=== PATIENT | female | born 1955 | race Asian ===

== ENCOUNTER → 2023-12-06 14:10 | Outpatient (REF) | payer MEDICARE, SELFPAY | LOC: HWRAD 14:10 | PROVIDERS: ATTENDING PHYSICIAN Internal Medicine Hematology & Oncology; FAMILY PHYSICIAN Family Medicine | DX: C50.911 Malignant neoplasm of unspecified site of right female breast (principal); D50.9 Iron deficiency anemia, unspecified; C50.912 Malignant neoplasm of unspecified site of left female breast | CPT/HCPCS: 71260; Q9967 ==

== ENCOUNTER 2023-12-12 15:16 | Emergency (ER) | payer MEDICARE, SELFPAY ==
[2023-12-12 15:16] VITALS: BMI 35.6
[2023-12-12 15:22] VITALS: BP 146/93
[2023-12-12 15:37] LABS: Glucose - Point of Care 107 mg/dl (70-99)
[2023-12-12 16:00] LABS: % Basophils 0.7 % (0-2); % Eosinophils 4.4 % (0-6); % Immature Granulocytes 0.3 % (0-0.5); % Lymphocytes 20.1 % (20.5-51.1); % Monocytes 8.3 % (1.7-9.3); % Neutrophils 66.2 % (42.2-75.2); Absolute Basophils 0.1 10^3/uL (0-0.2); Absolute Eosinophils 0.5 10^3/uL (0-0.7); Absolute Lymphocytes 2.2 10^3/uL (1.2-3.4); Absolute Monocytes 0.9 10^3/uL (0.1-0.6); Absolute Neutrophils 7.2 10^3/uL (1.4-6.5); Hematocrit 37.6 % (37.0-47.0); Hemoglobin 12.4 g/dL (12.0-16.0); Mean Corpuscular Volume 81.7 fL (81.0-99.0); Mean Platelet Volume 9.9 fL (7.4-10.4); Nucleated Red Blood Cells % 0 %; Platelet Count 333 10^3/uL (130-400); Red Cell Dist. Width 13.5 % (11.5-14.5); White Blood Cell Count 10.8 10^3/uL (4.8-10.8)
[2023-12-12 16:15] LABS: ALT (SGPT) 14 U/L (0-35); AST (SGOT) 23 U/L (14-36); Albumin 3.8 g/dl (3.5-5.0); Alkaline Phosphatase 91 U/L (38-126); Blood Urea Nitrogen 21 mg/dl (7-17); Calcium 9.7 mg/dl (8.4-10.2); Carbon Dioxide 27 mmol/L (22-30); Chloride 98 mmol/L (98-107); Glucose 105 mg/dl (70-99); Potassium 4.4 mmol/L (3.5-5.1); Sodium 136 mmol/L (135-145); Total Bilirubin 0.7 mg/dl (0.2-1.3); Total Protein 7.6 g/dl (6.3-8.2); eGFR > 60.00
[2023-12-12 16:20] LABS: COVID-19 Antigen Negative (Negative)
[2023-12-12 16:23] LABS: NT-proBNP 357 pg/ml; Troponin I < 0.012 ng/ml
[2023-12-12 17:00] VITALS: BP 167/72
--- NOTE | 2023-12-12 17:09 | ED.GENMED ---
History of Present Illness
General
Chief Complaint: Chest Pain
Source: patient
Exam Limitations: none
Time Seen by Provider: 12/12/23 16:55
Nursing documentation reviewed up to this point in time: agreed with
Travel History
Have you had any contact with someone who has COVID-19?: No
Do you have any symptoms of coronavirus? Fever > 100 degrees, chills, cough, shortness of breath, sore throat, loss of taste or smell, muscle aches, or headache?: No
History of Present Illness
History of Present Illness:
68-year-old female presents emergency department due to left-sided chest pain for the past 5 days, hearing loss for 3 days and very sleepy for the past 2 days. She has bilateral lower extremity edema, and takes a diuretic for it. She complains of
bilateral calf pain. She also has shortness of breath that has been ongoing. She has a history of breast cancer and TB.
Past History
Past History
ED Past Medical History: Cancer (Breast), GERD, Hypothyroidism and Other (TB rheumatoid arthritis, chronic bronchitis, pneumonia, pulmonary embolus, DVT, arthritis)
ED Past Surgical History: and Other (Right mastectomy, bronchial embolization)
Social History
Tobacco: Non-smoker
Alcohol: None
Drug: None
Personal:
Living: with family
Employment: Not employed
Family History
Family History: Other (Brother with diabetes, mother with liver cancer)
Review of Systems
Review of Systems
Allergies reviewed?: Yes
All Other Systems: Not applicable
Constitutional: Reports no symptoms
EENT: Reports other (Left-sided hearing loss)
Respiratory: Reports trouble breathing
Cardiac: Reports chest pain
ABD/GI: Reports no symptoms
: Reports no symptoms
Musculoskeletal: Reports muscle pain
Skin: Reports no symptoms
Neurological: Reports dizzy
Endocrine: Reports no symptoms
Hematologic/Lymphatic: Reports no symptoms
Psychiatric: Reports no symptoms
Phy Exam
Physical Exam
Physical Exam:
Physical Exam
General: no apparent distress, not acutely ill
Neck: supple. no meningeal signs. normal posterior pharynx
Heart: s1/s2 regular rate and rhythm, no murmur. equal radial
pulses.
HEENT: Pupils equal round reactive to light, EOMI, cerumen bilateral ear canals
Lungs: no acute respiratory distress. clear bilaterally
Abdomen: normal bowel sounds. not tender. no CVAT
Neuro: alert and oriented. no focal neurological deficits cranial nerves II through XII intact, sleepy
Skin: no rash
Psychiatric: well kept. interactive and cooperative
Extremities: no edema. no calf tenderness. negative homans. good distal pulses
Scores
Heart Score for Chest Pain Patients
STEMI patient?: No
History: Slightly or Non-Suspicious
ECG: Normal
Age: >/= 65 years
Risk Factors: 1 or 2 Risk Factors
Troponin: </= Normal Limit
Heart Score for Chest Pain Patients: 3
Heart Score Risk: 2.5% MACE over next 6 weeks
Course
Orders/Labs/Results
Orders:
Orders
12/12/23 15:18
Electrocardiogram (*1) Urgent
Reason for Study: Chest Pain
12/12/23 15:19
EKG- Treatment ONCE
12/12/23 15:39
COVID-19 Antigen Urgent
Source: Nasal Swab
Complete Blood Count/With Diff Urgent
Comprehensive Metabolic Panel Urgent
NT-proBNP Urgent
Troponin I Urgent
INF RAPID [Influenza A+B Rapid Molecular] Urgent
HUI Source: Nasal Swab
Specimen Description:
Date Specimen was Collected: 12/12/23
Time Specimen was Collected: 15:37
12/12/23 17:07
CT Head W/o Iv Contrast Urgent
Comment:
Reason For Exam: dizzy, difficulty walking 1-2 days
US Periph Venous LOWER Ext Kp Urgent
Comment:
Reason For Exam: bilateral calf pain
12/12/23 17:08
CR Chest - 2 Views Urgent
Comment:
Reason For Exam: short of breath
12/12/23 18:33
Urinalysis Reflex To Culture Urgent
Date Specimen was Collected: 12/12/23
Time Specimen was Collected: 15:37
Urine Microscopic Reflex Cult Urgent
12/12/23 20:43
Doxycycline [Vibramycin] 100 mg PO NOW STA
Abnormal Lab Results
12/12/23 12/12/23 12/12/23
15:34 15:39 18:33
Absolute Neuts (auto) 7.2 H 10^3/uL
(1.4-6.5)
Absolute Monos (auto) 0.9 H 10^3/uL
(0.1-0.6)
Lymphocytes % 20.1 L %
(20.5-51.1)
BUN 21 H mg/dl
(7-17)
Glucose 105 H mg/dl
(70-99)
Ur Occult Blood Reflex 2+ A
(Negative)
Urine RBC 3-6 A /HPF
(0-2)
Urine Bacteria (Reflex) Few A
(Negative)
POC Glucose 107 H mg/dl
(70-99)
12/12/23 15:39
12/12/23 15:39
Vital Signs
Initial and Last Documented VS:
Initial Vital Signs
Temp Pulse Resp BP Pulse Ox
98.2 F 74 20 146/93 98
12/12/23 15:22 12/12/23 15:22 12/12/23 15:22 12/12/23 15:22 12/12/23 15:22
Last Documented Vital Signs
Temp Pulse Resp BP Pulse Ox
98.2 F 65 21 167/79 98
12/12/23 15:22 12/12/23 19:19 12/12/23 19:19 12/12/23 18:00 12/12/23 19:19
MDM/Problems Addressed
Differential Diagnosis Includes:
CVA, TIA, pneumonia, CHF, sinusitis
MDM/Problems Addressed:
68-year-old female with sinusitis, chronic right pleural effusion. Chest pain of unclear etiology. Will follow-up with cardiology due to multiple risk factors. Doxycycline prescribed for chronic sinusitis.
Chronic conditions affecting care: Cancer
Acute Exacerbation and/or Progression of Chronic Illness: Cancer
*Radiology
Radiology exam reviewed: radiology read reviewed (Ultrasound bilateral lower extremities no acute findings, chest x-ray chronic right pleural effusion, CT head severe maxillary sinusitis)
*Pulse Oximetry
Patient hypoxic: no
*EKG
Interpreted by ED Provider?: Yes
EKG Intrepretation Date: 12/12/23
EKG Intrepretation Time: 15:21
Interpretation: normal
Comparison EKG: no changes
Heart Rate: 69
Rate: normal
Rhythm: sinus
[place]: normal axis
Interval: normal interval
QRS Pattern: normal QRS
Ischemia: no ischemia
*Conceptor Interpretation
Rate: normal
Interpretation: normal
Heart Rate: 66
Rhythm: sinus
*Critical Care Note
Total Time (30-74mins, 75-104mins- exclusive of procedures): Not Applicable
Data Reviewed
Review of Other/Old Records Reveals: Radiology Studies (ct chest 12/06/23 chronic right pleural effusion)
Patient Management
Social determinants of health affecting care: Living situation and Strong social support
Escalation/DeEscalation of care consider admission/obs:
admit not indicated
ED Attending Note
-
Portions of this chart may have been created with voice recognition software.� Occasional wrong word or��sound alike� substitutions may have occurred due to the inherent limitations of voice recognition software.
Discharge Plan
Departure
Patient Disposition: Home (Routine Discharge)
Date of Disposition: 12/12/23
Time of Disposition: 20:45
Patient with high blood pressure during this ER visit?: Yes
Condition: Good
Discharge Problem:
Sinusitis, Chest pain, Dependent edema
Instructions: Sinusitis, Adult (DC), Dependent Edema (DC), Chest Pain DCA Follow Up, BLOOD PRESSURE
Prescriptions:
New
doxycycline hyclate 100 mg capsule
100 mg PO BID Qty: 19 0RF
fluticasone propionate [Flonase Allergy Relief] 50 mcg/actuation spray,suspension
1 spray intranasal DAILY Qty: 16 0RF
No Action
levothyroxine 100 MCG tablet
125 mcg PO DAILY
methylprednisolone [Methylpred DP] 4 mg tablets,dose pack
4 mg PO DAILY Qty: 21 0RF
Rx Instructions:
medro dose pack: take as directed
cyclobenzaprine 10 mg tablet
10 mg PO TID PRN (Reason: muscle spasm) Qty: 10 0RF
lidocaine 5 % adhesive patch,medicated
1 patch topical DAILY Qty: 15 0RF
Rx Instructions:
remove after 12 hrs
Referrals:
Wendy Santacruz MD [Family Provider] -
Interventions
Interventions:
*Risk Screen - Suicide Last Done: 12/12/23 17:00
*General Assessment Last Done: 12/12/23 17:00
*Neglect/Abuse Screening Last Done: 12/12/23 17:00
ED- Fall Risk Assessment Last Done: 12/12/23 17:00
ED- Cardiac Assessment Last Done: 12/12/23 17:00
[2023-12-12 18:00] VITALS: BP 167/79
[2023-12-12 18:43] LABS: Urine Albumin Negative (Neg - Trace); Urine Bilirubin Negative (Negative); Urine Character Clear (Clear); Urine Color Yellow; Urine Glucose Negative (Negative); Urine Ketone Negative (Negative); Urine Leukocyte Negative (Negative); Urine Nitrite Negative (Negative); Urine Occult Blood 2+ (Negative); Urine Urobilinogen Negative (Neg - 1+)
[2023-12-12 18:49] LABS: Urine Squamous Cell 0-2 /LPF (Few)
[2023-12-12 18:50] LABS: Urine Bacteria Few (Negative); Urine White Cell 0-2 /HPF (0-5)
[2023-12-12 20:00] VITALS: BP 147/94
[2023-12-12 20:44] VITALS: BP 157/88
[2023-12-12] MEDS: VIBRAMYCIN 100 MG PO (21:06)
[2023-12-12 21:24] VITALS: BP 157/88
== END 2023-12-12 21:25 | disposition home or self-care (01) ==
LOC: EMR 15:16
PROVIDERS: Student in an Organized Health Care Education/Training Program; EMERGENCY PHYSICIAN Emergency Medicine; FAMILY PHYSICIAN Family Medicine
DX: J32.0 Chronic maxillary sinusitis (principal); R07.89 Other chest pain; R60.9 Edema, unspecified; K21.9 Gastro-esophageal reflux disease without esophagitis; E03.9 Hypothyroidism, unspecified; I50.9 Heart failure, unspecified; M06.9 Rheumatoid arthritis, unspecified; J90 Pleural effusion, not elsewhere classified; Z80.0 Family history of malignant neoplasm of digestive organs; Z83.3 Family history of diabetes mellitus; Z85.3 Personal history of malignant neoplasm of breast; Z86.711 Personal history of pulmonary embolism; Z86.718 Personal history of other venous thrombosis and embolism; Z90.11 Acquired absence of right breast and nipple
CPT/HCPCS: 99284; 70450; 71046; 80053; 81003; 81015; 82962; 83880; 84484; 85025; 87502; 87811; 93005; 93970

== ENCOUNTER → 2024-04-24 11:38 | Outpatient (REF) | payer MEDICARE, SELFPAY | LOC: HWWDC 11:38 | PROVIDERS: ATTENDING PHYSICIAN Internal Medicine Hematology & Oncology | DX: C50.911 Malignant neoplasm of unspecified site of right female breast (principal); D50.9 Iron deficiency anemia, unspecified; C50.912 Malignant neoplasm of unspecified site of left female breast | CPT/HCPCS: 77063; 77067 ==

== ENCOUNTER → 2025-01-02 08:33 | Outpatient (REF) | payer MEDICARE, SELFPAY ==
[2025-01-02 09:55] LABS: % Basophils 0.9 % (0-2); % Eosinophils 3.7 % (0-6); % Immature Granulocytes 0.4 % (0-0.5); % Lymphocytes 23.4 % (20.5-51.1); % Neutrophils 61.6 % (42.2-75.2); Absolute Basophils 0.1 10^3/uL (0-0.2); Absolute Eosinophils 0.3 10^3/uL (0-0.7); Absolute Lymphocytes 1.9 10^3/uL (1.2-3.4); Absolute Monocytes 0.8 10^3/uL (0.1-0.6); Absolute Neutrophils 5.1 10^3/uL (1.4-6.5); Hematocrit 41.5 % (37.0-47.0); Hemoglobin 13.3 g/dL (12.0-16.0); Mean Corpuscular Hgb 26.7 pg (27.0-31.0); Mean Corpuscular Volume 83.3 fL (81.0-99.0); Mean Platelet Volume 9.2 fL (7.4-10.4); Nucleated Red Blood Cells % 0 %; Platelet Count 309 10^3/uL (130-400); Red Blood Cell Count 4.98 10^6/uL (4.20-5.40); Red Cell Dist. Width 14.8 % (11.5-14.5); White Blood Cell Count 8.2 10^3/uL (4.8-10.8)
[2025-01-02 10:46] LABS: Glycohemoglobin (HgbA1c) 5.9 % (4.0-5.6)
[2025-01-02 10:56] LABS: TSH Reflex To Free T4 1.12 uIU/ml (0.47-4.68)
[2025-01-02 11:10] LABS: ALT (SGPT) 18 U/L (0-35); AST (SGOT) 22 U/L (14-36); Albumin 4.3 g/dl (3.5-5.0); Alkaline Phosphatase 103 U/L (38-126); Blood Urea Nitrogen 11 mg/dl (7-17); Calcium 10.1 mg/dl (8.4-10.2); Carbon Dioxide 29 mmol/L (22-30); Chloride 100 mmol/L (98-107); Glucose 109 mg/dl (70-99); HDL Cholesterol 49 mg/dl; LDL Cholesterol, Calculated 128 mg/dl; Potassium 4.1 mmol/L (3.5-5.1); Sodium 139 mmol/L (135-145); Total Bilirubin 0.9 mg/dl (0.2-1.3); Total Cholesterol 208 mg/dl (50-199); Total Protein 8.4 g/dl (6.3-8.2); Triglyceride 159 mg/dl (10-149); Very Low Density Lipoprotein 31 mg/dl (0-30); eGFR > 60.00
[2025-01-03 14:48] LABS: CA 27-29 52.1 U/mL (<=39.0)
[2025-01-04 00:26] LABS: CA 15-3 Breast Antigens 29 U/mL (0-31)
== END ==
LOC: RAD 08:33
PROVIDERS: ATTENDING PHYSICIAN Internal Medicine Hematology & Oncology
DX: C50.912 Malignant neoplasm of unspecified site of left female breast (principal); D50.9 Iron deficiency anemia, unspecified; E03.9 Hypothyroidism, unspecified; E78.5 Hyperlipidemia, unspecified
CPT/HCPCS: 36415; 78306; 80053; 80061; 83036; 84443; 85025; 86300; A9503

== ENCOUNTER → 2025-01-09 14:04 | Outpatient (REF) | payer MEDICARE, OTHER, SELFPAY | LOC: HWRAD 14:04 | PROVIDERS: ATTENDING PHYSICIAN Internal Medicine Hematology & Oncology | DX: C50.911 Malignant neoplasm of unspecified site of right female breast (principal); D50.9 Iron deficiency anemia, unspecified; C50.912 Malignant neoplasm of unspecified site of left female breast; C79.51 Secondary malignant neoplasm of bone; M54.50 Low back pain, unspecified | CPT/HCPCS: 72131 ==